=== PATIENT | female | born 1990 | race Caucasian/White ===

== ENCOUNTER → 2016-03-27 | Outpatient (REF) | payer OTHER | END | disposition home or self-care (01) | LOC: M LAB REF 20:21 | PROVIDERS: ATTEND Physician Assistant Medical | DX: J02.9 Acute pharyngitis, unspecified (principal) ==

== ENCOUNTER → 2016-04-17 | Outpatient (REF) | payer OTHER | LOC: M LAB REF 09:38 | PROVIDERS: ATTEND Physician Assistant Medical | DX: N91.2 Amenorrhea, unspecified (principal) ==

== ENCOUNTER → 2016-05-15 | Outpatient (CLI) | payer OTHER | LOC: M LAB 15:54 | PROVIDERS: ATTEND Obstetrics & Gynecology | DX: O20.0 Threatened abortion (principal); Z3A.00 Weeks of gestation of pregnancy not specified ==

== ENCOUNTER → 2016-07-23 | Outpatient (CLI) | payer OTHER | LOC: M SMT 15:38 | PROVIDERS: ATTEND Obstetrics & Gynecology | DX: O02.1 Missed abortion (principal) ==

== ENCOUNTER → 2016-08-06 | Outpatient (CLI) | payer OTHER | LOC: M SMT 13:32 | PROVIDERS: ATTEND Obstetrics & Gynecology | DX: O03.9 Complete or unspecified spontaneous abortion without complication (principal) ==

== ENCOUNTER → 2016-09-13 | Outpatient (REF) | payer OTHER | LOC: M LAB REF 20:20 | PROVIDERS: ATTEND Physician Assistant | DX: J03.90 Acute tonsillitis, unspecified (principal) ==

== ENCOUNTER → 2020-03-03 | Outpatient (REF) | payer BC | LOC: M PLALAB 11:52 | PROVIDERS: ATTEND Advanced Practice Midwife | DX: O09.812 Supervision of pregnancy resulting from assisted reproductive technology, second trimester (principal) ==

== ENCOUNTER → 2020-04-13 | Outpatient (CLI) | payer BC, OTHER ==
--- NOTE | 2020-04-13 17:08 | REP ---
INDICATION: ANATOMY. Supervision of . ROXANE September 08, 2020. COMPARISON: None. TECHNIQUE: Transabdominal obstetric sonography. FINDINGS: Scanning through the gravid uterus demonstrates a viable single intrauterine gestation in breech lie. motion is observed and heart rate is recorded at 152 beats per minute. A post row fundal placenta is seen, grade 1, without evidence of placenta previa. Closed cervical length is measured at 3.3 cm transabdominally. No extrauterine abnormality is observed. Amniotic fluid is subjectively normal. There is a echogenic focus in the ventricle consistent with chordee tendineae. spine is less than optimally seen due to position. The following additional anatomic structures are identified felt to be unremarkable: cranium and intracranial contents, face and profile nose and lips, left and right ventricular cardiac outflow tract views, diaphragm, left-sided stomach, abdominal wall cord insertion, right and left kidney, bladder, upper and lower extremities, three-vessel cord. . Biometry chart: BPD 4.2 cm, 18 weeks 4 days Head circumference 15.5 cm, 18 weeks 3 days Abdominal circumference 13.1 cm, 18 weeks 5 days Femur length 3.0 cm, 19 weeks 1 day Humeral length 2.9 cm, 19 weeks 3 days HC AC ratio normal 1.18 Cephalic index normal 0.74 Estimated weight 261 g, 0 lb 9 oz, 46 percentile for 18 weeks 6 days IMPRESSION: Viable single intrauterine gestation at 18 weeks 6 days by today's composite sonographic criteria. ROXANE by today's sonography September 08, 2020. No complication identified. <Electronically signed by Clayton Mccabe > 04/13/20 0150
== END ==
LOC: M WHC 13:33
PROVIDERS: ATTEND Advanced Practice Midwife
DX: O09.812 Supervision of pregnancy resulting from assisted reproductive technology, second trimester (principal); Z3A.18 18 weeks gestation of pregnancy

== ENCOUNTER → 2020-06-14 | Outpatient (REF) | payer OTHER | LOC: M PLALAB 08:18 | PROVIDERS: ATTEND Advanced Practice Midwife | DX: O99.212 Obesity complicating pregnancy, second trimester (principal); Z3A.00 Weeks of gestation of pregnancy not specified ==

== ENCOUNTER 2020-08-11 13:05 | Inpatient (IN) | payer BC, OTHER ==
[~2020-08-11] VITALS: Ht 170.2 cm; Wt 102.9 kg
[2020-08-11] MEDS ORDERED: PRENTAB9 PO (13:48)
[2020-08-11 14:07] VITALS: BP 118/58
[2020-08-11] MEDS ORDERED: APPROPRIATE DILUENT IV ONE (14:15)
[2020-08-11] MEDS ORDERED: LR 800 ML IV ONE (14:30)
[2020-08-11 15:25] LABS: BASO % 0.3 % (0.0-1.0); EOS # 0.1 10^3/uL (0.0-0.5); EOS % 0.7 % (0.0-3.0); HEMATOCRIT 37.2 % (36.0-47.0); HEMOGLOBIN 11.8 g/dl (12.0-15.5); LYMPH # 1.2 10^3/uL (1.5-5.0); LYMPH % 11.5 % (24.0-44.0); MEAN CORPUSCULAR HEMOGLOBIN 26.1 pg (27.0-33.0); MEAN CORPUSCULAR HGB CONC 31.7 g/dl (32.0-36.5); MEAN CORPUSCULAR VOLUME 82.3 fl (80.0-96.0); MONO # 0.7 10^3/uL (0.0-0.8); MONO % 6.5 % (2.0-8.0); NEUTROPHILS # 8.4 10^3/uL (1.5-8.5); NEUTROPHILS % 80.3 % (36.0-66.0); PLATELET COUNT, AUTOMATED 307 10^3/uL (150-450); RED BLOOD COUNT 4.52 10^6/uL (4.00-5.40); WHITE BLOOD COUNT 10.4 10^3/uL (4.0-10.0)
[2020-08-11 15:51] LABS: BLOOD UREA NITROGEN 6 MG/DL (7-18); CALCIUM LEVEL 8.2 MG/DL (8.5-10.1); CARBON DIOXIDE LEVEL 22 MEQ/L (21-32); CHLORIDE LEVEL 110 MEQ/L (98-107); CREATININE FOR GFR 0.47 MG/DL (0.55-1.30); GLOMERULAR FILTRATION RATE > 60.0 (>60); GLUCOSE, FASTING 69 MG/DL (70-100); POTASSIUM SERUM 3.7 MEQ/L (3.5-5.1); SODIUM LEVEL 140 MEQ/L (136-145)
[2020-08-11] MEDS: BETAMETHASONE SOLUSPAN 6MG/ML 5ML VIAL (J0702 PER 3MG) IM SCH (16:11)
[2020-08-11] MEDS: LR 1,000 ML IV SCH ×2 (16:54→22:45)
[2020-08-11 17:32] VITALS: BP 124/60
[2020-08-12] VITALS (11 sets, daily range): BP systolic 106–170; BP diastolic 50–78
[2020-08-12] MEDS: LR 1,000 ML IV SCH ×2 (07:30→22:15)
--- NOTE | 2020-08-12 08:16 | IPNPDOC ---
Text Note Date of Service The patient was seen on 08/12/20. NOTE Outpatient Cat I tracing, rare UC HA this am 3.[address] Ugalde. Will admit patient, repeat beta this afternoon Plan to deliver this weekend. Pt and partner verbalize understanding. VS,Fishbone, I+O VS, Fishbone, I+O Laboratory Tests 08/11/20 14:13 Vital Signs Date Time Temp Pulse Resp B/P (MAP) Pulse Ox O2 Delivery O2 Flow Rate FiO2 08/12/20 07:45 97.3 77 18 140/72 (94) I&O- Last 24 Hours up to 6 AM 08/12/20 05:59 Intake Total 2000 ml Output Total 900 ml Balance 1100 ml Suzanne Strange CNM Aug 12, 2020 08:16
[2020-08-12] MEDS ORDERED: LACTATED RINGER'S 1000 ML IV STA (08:36)
[2020-08-12] MEDS ORDERED: OXYTOCIN DRIP 30 UNITS in IV 1 EA IV PRN (08:40)
--- NOTE | 2020-08-12 08:52 | REP ---
INDICATION: LOW HA. COMPARISON: Comparison study August 11, 2020.. TECHNIQUE: Limited transabdominal obstetric sonography. FINDINGS: Scanning through the gravid uterus demonstrates a viable single intrauterine gestation in cephalic lie. motion is observed and heart rate is recorded at 134 beats per minute. A anteroseptal and 0 placenta is seen, grade 2, without evidence of placenta previa. No extrauterine abnormality is observed. Amniotic fluid is subjectively low, HA is decreased at 3.1 cm (7.7-24.8 cm). SD ratio normal 2.37. IMPRESSION: Viable single intrauterine gestation at 36 weeks 1 days by today's composite sonographic criteria. ROXANE by today's sonography September 08, 2020. Oligohydramnios. HA 3.1 cm. <Electronically signed by Clayton Mccabe > 08/12/20 0887
[2020-08-12] MEDS ORDERED: ceFAZolin SOD 2 GM in IV 1 EA IV ONE (09:00)
[2020-08-12] MEDS ORDERED: BICITRA 30ML SOLN UDC PO ONE (09:00)
--- NOTE | 2020-08-12 09:11 | HPEPDOC ---
Obstetrical History & Physical General Date of Admission Aug 12, 2020 at 08:07 History of Present Illness Chief Complaint: Other (Oligyhydramnios, previous ) Information Provided By: Patient Age: 30 : 6 Term: 1 Pre-term: 0 Abortions: 4 Livin Care Care: Good Care Dating Final EDC: Sep 08, 2020 Final EDC by: LMP EGA at Admission: 36 (+2) Antepartum Course Pre- weight (lbs.): 224 Admission Weight (lbs.): 226 Past Medical History Past Obstetrical History : Past Obstetrical History: Primgravida (2018) Type of Delivery: Ceserean section Sex of : Female Complications: Yes (Cat II, arrest dilation) MEDICAL RADIATION TECH History: Spontaneous , Other (Current IVF pregancy) Past Medical History Surgical History: section (IVF) Family History Significant Family History: Cancer (mother breast) Social History Marital Status: Family situation: Spouse/partner home Psychosocial History: No pertinent psych hx * Smoker: non-smoker Alcohol: Denies Drugs: denies Imunizations Tdap status: current Allergies Coded Allergies: No Known Drug Allergies (Verified Allergy, Unknown, 08/11/20) Medications Scheduled No.137/Iron/Folic Acd ( Vitamin Tablet) 1 Each Tablet, 1 TAB PO DAILY Physical Examination Physical Examination GENERAL: Alert and oriented times three. BREAST: . ABDOMEN: Gravid and non-tender to touch. FETUS: Is vertex (VTX) by sterile vaginal examination (SVE), fetus is vertex (VTX) by Tone. HEART RATE: Regular rate and rhythm. LUNGS: Clear to auscultation (CTA). EXTREMITIES: No edema. No clonus. Deep tendon reflexes (DTRs) + 2. Vital Signs/I&O Vital Signs Date Time Temp Pulse Resp B/P (MAP) Pulse Ox O2 Delivery O2 Flow Rate FiO2 08/12/20 07:45 97.3 77 18 140/72 (94) I&O- Last 24 Hours up to 6 AM 08/12/20 05:59 Intake Total 2000 ml Output Total 900 ml Balance 1100 ml Laboratory Data 24H LABS Laboratory Tests 2 08/11/20 14:13: Immature Granulocyte % (Auto) 0.7, Neutrophils (%) (Auto) 80.3H, Lymphocytes (%) (Auto) 11.5L, Monocytes (%) (Auto) 6.5, Eosinophils (%) (Auto) 0.7, Basophils (%) (Auto) 0.3, Neutrophils # (Auto) 8.4, Lymphocytes # (Auto) 1.2L, Monocytes # (Auto) 0.7, Eosinophils # (Auto) 0.1, Basophils # (Auto) 0.0, Nucleated Red Blood Cells % (auto) 0.0, Anion Gap 8, Glomerular Filtration Rate > 60.0, Calcium Level 8.2L 08/12/20 08:16: Serology Scanned Report Hepatitis B Testing CBC/BMP Laboratory Tests 08/11/20 14:13 Pertinent Laboratoy Data Blood Type: O+ RBC Antibody Screen: Negative HIV: Negative Hepatitis B: Negative Hepatitis C: Negative Rapid Plasma Reagin: Nonreactive Rubella: Immune Chlamydia/Gonorrhea: Negative Group B Streptococcus: Unknown ( pending) Glucose Tolerance Test: 120 Diag/Inter Therapy Panorama low risk male Anatomy Ultrasound Ultrasound Date: Apr 13, 2020 Placenta Location: Posterior Normal Anatomy: Yes Placenta Previa: No Estimated Weight (grams): 261 (46%) Other Ultrasounds [facility] 01/12/2020 6w0d 02/03/2020 8w5d, +FH + yolk sac 02/10/2020 10w0d +FH + yolk sac 08/11/2020 Cephalic, HA 4.7, EFW 2715gm 39%, S/D 2.46 08/12/2020 HA 3.1 Steroid Therapy Steroid Therapy: Yes Vaginal Examination Dilation: None (deferred) Assessment Heart Rate (FHR): 135 Variability: Moderate Accelerations: Positive Decelerations: None Tocometer Contractions: No Assessment/Plan Assessment Jeannette is a 30-year-old (G)6 para (P)1-0-4-1 at 36+2 weeks by 6-week ultrasound post IVF. Presents to Labor and Delivery (L&D) due to oligohydramnios. Denies LOF, bleeding or regular UC. Good movement. Plan Admit and orient. Rip/Mould Operator and consent for repeat per consult Dr Ugalde Diet: Regular at present Group B Streptococcus (GBS) pending. Labs and intravenous (IV) per unit protocol. Counseled on completion of steroid therapy followed by repeat this weekend Lactated Ringers (LR): Bolus 1000ml front end software engineer to OR Repeat per Suzanne Brunner CNM Aug 12, 2020 08:56
[2020-08-12 09:30] LABS: HEMATOCRIT 35.6 % (36.0-47.0); HEMOGLOBIN 11.4 g/dl (12.0-15.5); MEAN CORPUSCULAR HEMOGLOBIN 26.5 pg (27.0-33.0); MEAN CORPUSCULAR VOLUME 82.8 fl (80.0-96.0); PLATELET COUNT, AUTOMATED 323 10^3/uL (150-450); WHITE BLOOD COUNT 13.6 10^3/uL (4.0-10.0)
[2020-08-12] MEDS ORDERED: AZITHROMYCIN INJ 500 MG, VIAL MATE ADAPTER 1 EACH in NS 250 ML IV ONE (10:00)
[2020-08-12] MEDS: BETAMETHASONE SOLUSPAN 6MG/ML 5ML VIAL (J0702 PER 3MG) IM SCH (16:10)
[2020-08-13] VITALS (15 sets, daily range): BP systolic 115–145; BP diastolic 55–82
[2020-08-13] MEDS ORDERED: BICITRA 30ML SOLN UDC As Ordered ONE (06:54)
[2020-08-13] MEDS ORDERED: ceFAZolin 2 GM/D5W 50 ML IV BAG (J0690 PER 500MG) As Ordered ONE (06:54)
[2020-08-13 06:55] LABS: HEMATOCRIT 35.9 % (36.0-47.0); HEMOGLOBIN 11.5 g/dl (12.0-15.5); MEAN CORPUSCULAR HEMOGLOBIN 26.5 pg (27.0-33.0); MEAN CORPUSCULAR VOLUME 82.7 fl (80.0-96.0); PLATELET COUNT, AUTOMATED 330 10^3/uL (150-450); RED BLOOD COUNT 4.34 10^6/uL (4.00-5.40)
[2020-08-13] MEDS ORDERED: AZITHROMYCIN INJ 500MG VIAL (J0456 PER 500MG) As Ordered ONE (06:55)
[2020-08-13] MEDS: LR 1,000 ML IV SCH (09:22)
[2020-08-13] MEDS ORDERED: MORPHINE PRES-FREE INJ 10 MG/10 ML VIAL (J2274) As Ordered ONE (09:25)
[2020-08-13] MEDS ORDERED: OXYTOCIN INJ 10 UNITS/ML VIAL (J2590) As Ordered ONE (09:29)
[2020-08-13] MEDS ORDERED: ONDANSETRON 4MG/2ML VIAL As Ordered ONE (09:46)
[2020-08-13] MEDS ORDERED: NALOXONE INJ 0.4MG/1ML VIAL (J2310 PER 1MG) IV PRN ×2 (09:52)
[2020-08-13] MEDS ORDERED: NALBUPHINE HCL 10 MG/ML AMP (J2300) IV PRN (09:52)
[2020-08-13] MEDS ORDERED: diphenhydrAMINE 50MG/ML VIAL (J1200) IV PRN (09:52)
[2020-08-13] MEDS ORDERED: METOCLOPRAMIDE INJ 10MG/2ML VIAL (J2765 PER 1) IV PRN ×2 (09:52→10:50)
[2020-08-13] MEDS ORDERED: ONDANSETRON 4MG/2ML VIAL IV PRN ×3 (09:52→10:50)
[2020-08-13] MEDS ORDERED: ePHEDrine SULFATE 25 MG/5 ML(5MG/ML) SYRINGE As Ordered ONE (10:06)
[2020-08-13] MEDS ORDERED: KETOROLAC 60MG 2ML VIAL As Ordered ONE (10:07)
[2020-08-13] MEDS ORDERED: dexameTHASONE 4 MG/ML 1ML VIAL (J1100 PER 1MG) As Ordered ONE (10:07)
[2020-08-13] MEDS ORDERED: PERCOCET 5MG/325MG TAB PO PRN ×2 (10:45→10:50)
[2020-08-13] MEDS ORDERED: RHOGAM 300 MCG (1500 IU) INJ (J2790) IM SCH (10:45)
[2020-08-13] MEDS ORDERED: SIMETHICONE 80MG CHEW TAB PO PRN (10:45)
[2020-08-13] MEDS ORDERED: DOCUSATE SODIUM 100MG CAPSULE PO PRN (10:45)
[2020-08-13] MEDS ORDERED: MEASLES,MUMPS,RUBELLA VACCINE INJ (MMR-II) (90707) SC SCH (10:45)
--- NOTE | 2020-08-13 10:46 | ROOPDOC ---
[facility] Report Of Operation Report of Operation DATE OF PROCEDURE: 08/13/20 Report of operation Preoperative diagnosis: 36 4/7 weeks, prior , oligohydramnios Postoperative diagnosis: same Procedure: Repeat low transverse section. Surgeon: Kait Whiteside M.D. Asst.: Tommie Abdul MD EBL: 600 ml. Urine output: 100 mL's. Findings: 5 lbs. 12 oz. male , Apgars 8 and 9 g normal uterus, fallopian tubes, ovaries. Operative summary: Patient taken to the operating room where spinal anesthesia was induced. She was prepped draped sterile fashion in the supine position. A Mccormick catheter was placed. A Pfannenstiel skin incision was made with scalpel. Fascia was incised and extended bilaterally. The peritoneal cavity was entered. A Mobius retractor was placed. A bladder flap was created. A curvilinear incision was made in lower uterine segment until Clear fluid was noted. The incision was extended manually. The was delivered from the vertex pos ition without difficulty. Cord was double clamped and cut. The was handed waiting nurses. The placenta was expressed. Uterus was closed with O-Vicryl in a running locked fashion. A second imbricating layer of Vicryl was placed. Peritoneum was closed with 2-0 Vicryl a running fashion. Fascia was closed with 0 Vicryl in running fashion. Skin was closed 4-0 Monocryl subcuticular sutures. Sponge, instrument and needle counts were correct. Tommie Abdul MD, assisted with all aspects of the procedure. He helped close each layer of the incision and deliver the fetus. KAIT WHITESIDE MD Aug 13, 2020 10:46
[2020-08-13] MEDS ORDERED: fentaNYL 100 MCG/2 ML INJECTION (J3010) IV PRN (10:50)
[2020-08-13] MEDS ORDERED: LR 1,000 ML IV SCH ×2 (10:50→12:00)
[2020-08-13] MEDS ORDERED: OXYTOCIN DRIP 30 UNITS in IV 1 EA IV SCH (11:00)
[2020-08-13] MEDS ORDERED: OXYTOCIN 30 UNITS IN 0.9% NaCl 500ML IV BAG (J2590) As Ordered ONE (11:32)
[2020-08-13] MEDS: KETOROLAC 30 MG/ML 1ML VIAL IV SCH ×2 (15:58→21:55)
[2020-08-14] MEDS: KETOROLAC 30 MG/ML 1ML VIAL IV SCH (04:20)
[2020-08-14 06:00] VITALS: BP 115/53
[2020-08-14 07:16] LABS: HEMATOCRIT 28.9 % (36.0-47.0); MEAN CORPUSCULAR HEMOGLOBIN 27.2 pg (27.0-33.0); MEAN CORPUSCULAR HGB CONC 32.2 g/dl (32.0-36.5); MEAN CORPUSCULAR VOLUME 84.5 fl (80.0-96.0); PLATELET COUNT, AUTOMATED 305 10^3/uL (150-450); RED BLOOD COUNT 3.42 10^6/uL (4.00-5.40); WHITE BLOOD COUNT 14.6 10^3/uL (4.0-10.0)
[2020-08-14 07:17] LABS: HEMOGLOBIN 9.3 g/dl (12.0-15.5)
[2020-08-14] MEDS: PRENATAL VITAMINS CHEWABLE TABLET PO SCH (08:19)
[2020-08-14] MEDS: PERCOCET 5MG/325MG TAB PO PRN ×2 (08:27→22:56)
[2020-08-14 09:49] VITALS: BP 128/58
[2020-08-14] MEDS: IBUPROFEN 800 MG TAB PO SCH ×2 (11:31→20:52)
[2020-08-14 13:54] VITALS: BP 140/64
[2020-08-14 17:54] VITALS: BP 141/63
--- NOTE | 2020-08-14 18:31 | IPNPDOC ---
Progress Note Date of Service: Aug 14, 2020 Progress Note SUBJECT: 30 yo s/p section POD#1. pain well controlled. OBJECTIVE: VITAL SIGNS: Within normal limits, afebrile. Alert and oriented times three. Breath sounds clear to auscultation. Heart rate: Regular rate and rhythm, no murmurs, rubs or gallops. Abdomen: Fundus firm at U-2. Soft, NTTP. [Minimal] lochia. ASSESSMENT: 30 yo s/p POD#1 PLAN: 1. Ambulate 2. pain management 3. advance diet 4. routine post-op care VS, I&O, 24H, Fishbone Vital Signs/I&O Vital Signs Date Time Temp Pulse Resp B/P (MAP) Pulse Ox O2 Delivery O2 Flow Rate FiO2 08/14/20 17:54 97.5 65 16 141/63 (89) 97 Room Air 08/13/20 14:00 98.0 I&O- Last 24 Hours up to 6 AM 08/14/20 05:59 Intake Total 300 ml Output Total 1850 ml Balance -1550 ml Laboratory Data 24H LABS Laboratory Tests 2 08/14/20 06:52: Nucleated Red Blood Cells % (auto) 0.1H CBC/BMP Laboratory Tests 08/14/20 06:52 KAIT WHITESIDE MD Aug 14, 2020 18:31
[2020-08-14 22:00] VITALS: BP 139/64
[2020-08-15 02:00] VITALS: BP 109/51
[2020-08-15] MEDS: IBUPROFEN 800 MG TAB PO SCH ×2 (04:36→12:52)
[2020-08-15 06:00] VITALS: BP 144/67
[2020-08-15] MEDS ORDERED: IBUP80TA PO (06:45)
[2020-08-15] MEDS ORDERED: OXYC1TAB23 PO (06:45)
--- NOTE | 2020-08-15 06:54 | DS.PDOC ---
Discharge Summary General Date of Admission Aug 12, 2020 at 08:07 Date of Discharge Aug 15, 2020 Discharge Summary PROCEDURES PERFORMED DURING STAY: . ADMITTING DIAGNOSES: 1. 36 2/7 week, oligohydramnios, prior . DISCHARGE DIAGNOSES: 1. same. COMPLICATIONS/CHIEF COMPLAINT: EFM. HISTORY OF PRESENT ILLNESS: 30-year-old female presents to the hospital at 36-2/7 weeks gestation with a diagnosis of oligohydramnios.. HOSPITAL COURSE: Patient was made in August 12, 2020. She received a course of steroids for lung maturity. Repeat ultrasound confirmed oligohydramnios with an HA of approximately 3.0. She has had a prior section and is planning on repeat section. After completing a course of steroids decision made to proceed with delivery. On 08/13/2020 the patient had a repeat low transverse section without complication. Her postope rative course was unremarkable. She had adequate return of bladder and bowel function. She was deemed stable for discharge on postop day #2. DISCHARGE MEDICATIONS: Please see below. ALLERGIES: Please see below. PHYSICAL EXAMINATION ON DISCHARGE: VITAL SIGNS: Please see below. GENERAL: No apparent distress HEENT: NCAT CARDIOVASCULAR EXAMINATION: RRR RESPIRATORY EXAMINATION: Clear to auscultation ABDOMINAL EXAMINATION: Nontender soft fundus firm EXTREMITIES: Nontender LABORATORY DATA: Please see below. PROGNOSIS: Good ACTIVITY: As tolerated. DIET: Regular DISCHARGE PLAN: Home DISCHARGE INSTRUCTIONS: 1. Discharge home today 2. Instructions reviewed 3. Pain medication sent. DISCHARGE CONDITION: Stable. TIME SPENT ON DISCHARGE: Greater than 10 minutes. Vital Signs/I&Os Vital Signs Date Time Temp Pulse Resp B/P (MAP) Pulse Ox O2 Delivery O2 Flow Rate FiO2 08/15/20 02:00 97.8 70 16 109/51 (70) 98 Room Air 08/13/20 14:00 98.0 Laboratory Data Labs 24H Laboratory Tests 2 08/14/20 06:52: Nucleated Red Blood Cells % (auto) 0.1H CBC/BMP Laboratory Tests 08/14/20 06:52 Discharge Medications Scheduled Ibuprofen (Ibuprofen) 800 Mg Tablet, 800 MG PO Q8H No.137/Iron/Folic Acd ( Vitamin Tablet) 1 Each Tablet, 1 TAB PO DAILY, (Reported) Scheduled PRN Oxycodone HCl/Acetaminophen (Oxycodone-Acetaminophen 5-325) 1 Each Tablet, 1 TAB PO TIDP PRN for pain Allergies Coded Allergies: No Known Drug Allergies (Verified Allergy, Unknown, 08/11/20) KAIT WHITESIDE MD Aug 15, 2020 06:54
[2020-08-15] MEDS: PRENATAL VITAMINS CHEWABLE TABLET PO SCH (08:38)
== END 2020-08-15 15:50 | disposition home or self-care (01) | DRG 540 ==
LOC: M LDO 13:05 → M LDI 08-12 08:07 → M OBS 08-13 12:23
PROVIDERS: ADMIT Advanced Practice Midwife; ATTEND Specialist
PROC: 10D00Z1 Extraction of Products of Conception, Low, Open Approach (ICD-10-PCS; principal; 2020-08-13 09:00)
DX: O41.03X0 Oligohydramnios, third trimester, not applicable or unspecified (principal); O34.211 Maternal care for low transverse scar from previous cesarean delivery; Z3A.36 36 weeks gestation of pregnancy; Z37.0 Single live birth

== ENCOUNTER → 2020-08-11 | Outpatient (CLI) | payer BC, OTHER ==
[~2020-08-11] MED LIST: PRENTAB9 PO
--- NOTE | 2020-08-11 12:20 | REP ---
INDICATION: AMNIOTIC FLUID AND GROWTH, 36 WEEKS. COMPARISON: Comparison study April 13, 2020.. TECHNIQUE: Transabdominal obstetric sonography. FINDINGS: Scanning through the gravid uterus demonstrates a viable single intrauterine gestation in cephalic lie. motion is observed and heart rate is recorded at 157 beats per minute. A posterior fundal placenta is seen, grade 2, without evidence of placenta previa. Closed cervical length is measured at 3.0 cm transabdominally. No extrauterine abnormality is observed. Amniotic fluid is subjectively oligohydramnios. HA low 4.7 cm (7.7-24.9 cm). . Biometry chart: BPD 9.3 cm, 37 weeks 6 days Head circumference 32.2 cm, 36 weeks 2 days Abdominal circumference 30.7 cm, 34 weeks 5 days Femur length 7.1 cm, 36 weeks 1 day Humeral length 6.2 cm, 35 weeks 4 days HC AC ratio normal 1.05 Cephalic index normal 0.84 Estimated weight 2715 g, 5 lb 15 oz, 39th percentile for 36 weeks 0 days SD ratio in the umbilical cord artery by Doppler normal 2.46 HA low 4.7 cm IMPRESSION: Viable single intrauterine gestation at 36 weeks 1 days by today's composite sonographic criteria. ROXANE by today's sonography September 07, 2020.. Oligohydramnios. Expected gestational age estimate based on known ROXANE of 08 September 2020 is 36 weeks 0 days. This is consistent with appropriate interval growth. <Electronically signed by Clayotn Mccabe > 08/11/20 [id number]
== END ==
LOC: M RAD 11:20
PROVIDERS: ATTEND Advanced Practice Midwife
DX: Z36.89 Encounter for other specified antenatal screening (principal); Z3A.36 36 weeks gestation of pregnancy

== ENCOUNTER 2021-06-06 16:17 | Emergency (ER) | payer BC, OTHER ==
[~2021-06-06] VITALS: Ht 170.2 cm; Wt 97.5 kg
[~2021-06-06 16:17] MED LIST changes: +IBUP-1114 PO; +IBUP80TA PO; +OXYC1TAB23 PO
[2021-06-06 16:18] VITALS: BP 143/65
[2021-06-06] MEDS ORDERED: ENDO100S PV (16:41)
[2021-06-06 17:54] LABS: BASO % 0.2 % (0.0-1.0); EOS # 0.2 10^3/uL (0.0-0.5); EOS % 1.5 % (0.0-3.0); HEMATOCRIT 40.9 % (36.0-47.0); LYMPH # 2.5 10^3/uL (1.5-5.0); LYMPH % 17.8 % (24.0-44.0); MEAN CORPUSCULAR HEMOGLOBIN 28.4 pg (27.0-33.0); MEAN CORPUSCULAR HGB CONC 34.2 g/dl (32.0-36.5); MONO # 0.8 10^3/uL (0.0-0.8); MONO % 6.1 % (2.0-8.0); NEUTROPHILS # 10.2 10^3/uL (1.5-8.5); PLATELET COUNT, AUTOMATED 354 10^3/uL (150-450); RED BLOOD COUNT 4.93 10^6/uL (4.00-5.40); WHITE BLOOD COUNT 13.8 10^3/uL (4.0-10.0)
[2021-06-06 18:32] LABS: ALBUMIN 3.4 GM/DL (3.2-5.2); ALT/SGPT 46 U/L (12-78); BILIRUBIN,DIRECT < 0.1 MG/DL (0.0-0.2); BILIRUBIN,TOTAL 0.3 MG/DL (0.2-1.0); BLOOD UREA NITROGEN 9 MG/DL (7-18); CALCIUM LEVEL 9.4 MG/DL (8.5-10.1); CARBON DIOXIDE LEVEL 26 MEQ/L (21-32); CHLORIDE LEVEL 106 MEQ/L (98-107); CREATININE FOR GFR 0.54 MG/DL (0.55-1.30); GLOMERULAR FILTRATION RATE > 60.0 (>60); GLUCOSE, FASTING 84 MG/DL (70-100); HCG, SERUM QUANTITATIVE 109189 MIU/ML; LIPASE 87 U/L (73-393); POTASSIUM SERUM 4.3 MEQ/L (3.5-5.1); SODIUM LEVEL 137 MEQ/L (136-145); TOTAL PROTEIN 6.8 GM/DL (6.4-8.2)
== END 2021-06-06 21:20 | disposition home or self-care (01) ==
LOC: M ED 16:17
DX: O26.891 Other specified pregnancy related conditions, first trimester (principal); R10.2 Pelvic and perineal pain; Z3A.10 10 weeks gestation of pregnancy

== ENCOUNTER → 2021-06-12 | Outpatient (CLI) | payer BC, OTHER ==
[~2021-06-12] MED LIST changes: +ENDO100S PV
== END ==
LOC: M PLALAB 15:59
PROVIDERS: ATTEND Advanced Practice Midwife
DX: O34.211 Maternal care for low transverse scar from previous cesarean delivery (principal); Z53.9 Procedure and treatment not carried out, unspecified reason

== ENCOUNTER → 2021-08-15 | Outpatient (CLI) | payer BC, OTHER ==
[2021-08-15 17:52] LABS: HEMATOCRIT 39.1 % (36.0-47.0); HEMOGLOBIN 12.9 g/dl (12.0-15.5); MEAN CORPUSCULAR HEMOGLOBIN 28.5 pg (27.0-33.0); MEAN CORPUSCULAR VOLUME 86.5 fl (80.0-96.0); PLATELET COUNT, AUTOMATED 347 10^3/uL (150-450); RED BLOOD COUNT 4.52 10^6/uL (4.00-5.40); WHITE BLOOD COUNT 13.7 10^3/uL (4.0-10.0)
[2021-08-15 18:48] LABS: HEPATITIS C VIRUS ABY INDEX 0.1 INDEX (<0.8); HIV 1&2 SCREEN CENTAUR NEGATIVE (NEGATIVE)
[2021-08-15 21:07] LABS: GC DNA AMPLIFICATION NEGATIVE (NEGATIVE)
== END ==
LOC: M PLALAB 13:25
PROVIDERS: ATTEND Advanced Practice Midwife
DX: O34.211 Maternal care for low transverse scar from previous cesarean delivery (principal); Z3A.20 20 weeks gestation of pregnancy

== ENCOUNTER → 2021-08-15 | Outpatient (CLI) | payer BC, OTHER | LOC: M WHC 13:27 | PROVIDERS: ATTEND Obstetrics & Gynecology | DX: Z36.2 Encounter for other antenatal screening follow-up (principal); Z3A.20 20 weeks gestation of pregnancy ==

== ENCOUNTER → 2021-10-09 | Outpatient (CLI) | payer BC, OTHER ==
[2021-10-09 14:09] LABS: HEMATOCRIT 35.6 % (36.0-47.0); HEMOGLOBIN 11.4 g/dl (12.0-15.5); MEAN CORPUSCULAR HEMOGLOBIN 27.7 pg (27.0-33.0); MEAN CORPUSCULAR VOLUME 86.4 fl (80.0-96.0); PLATELET COUNT, AUTOMATED 294 10^3/uL (150-450); RED BLOOD COUNT 4.12 10^6/uL (4.00-5.40)
== END ==
LOC: M PLALAB 08:44
PROVIDERS: ATTEND Obstetrics & Gynecology
DX: Z34.82 Encounter for supervision of other normal pregnancy, second trimester (principal)

== ENCOUNTER → 2021-11-15 | Outpatient (CLI) | payer BC, OTHER | LOC: M WHC 08:10 | PROVIDERS: ATTEND Obstetrics & Gynecology | DX: Z36.2 Encounter for other antenatal screening follow-up (principal); Z3A.33 33 weeks gestation of pregnancy ==

== ENCOUNTER → 2021-12-01 | Outpatient (REF) | payer OTHER | LOC: M SFHCWAGY 12:37 | PROVIDERS: ATTEND Obstetrics & Gynecology | DX: O34.211 Maternal care for low transverse scar from previous cesarean delivery (principal) ==

== ENCOUNTER → 2021-12-24 | Outpatient (CLI) | payer BC, OTHER | LOC: M LABSMTC 10:09 | PROVIDERS: ATTEND Anesthesiology | DX: Z01.812 Encounter for preprocedural laboratory examination (principal) ==

== ENCOUNTER 2021-12-27 05:34 | Inpatient (IN) | payer BC, OTHER ==
[2021-12-27] VITALS (8 sets, daily range): BP systolic 91–151; BP diastolic 43–70
[~2021-12-27] VITALS: Ht 170.2 cm; Wt 102.8 kg
[2021-12-27] MEDS ORDERED: ceFAZolin SOD 2 GM in IV 1 EA IV ONE (06:00)
[2021-12-27] MEDS ORDERED: LR 1,000 ML IV ONE (06:00)
[2021-12-27] MEDS ORDERED: BICITRA 30ML SOLN UDC PO ONE (06:00)
[2021-12-27 06:30] LABS: HEMATOCRIT 37.6 % (36.0-47.0); HEMOGLOBIN 11.8 g/dl (12.0-15.5); MEAN CORPUSCULAR HGB CONC 31.4 g/dl (32.0-36.5); MEAN CORPUSCULAR VOLUME 79.7 fl (80.0-96.0); PLATELET COUNT, AUTOMATED 341 10^3/uL (150-450); RED BLOOD COUNT 4.72 10^6/uL (4.00-5.40); WHITE BLOOD COUNT 13.6 10^3/uL (4.0-10.0)
[2021-12-27] MEDS: LR 1,000 ML IV SCH ×3 (07:04→23:00)
[2021-12-27] MEDS ORDERED: MORPHINE PRES-FREE INJ 10 MG/10 ML VIAL As Ordered ONE (07:07)
[2021-12-27] MEDS ORDERED: OXYTOCIN INJ 10 UNITS/ML VIAL (J2590) As Ordered ONE ×2 (07:10→09:07)
[2021-12-27] MEDS ORDERED: HOME MED LIST COMPLETE! XX SCH (07:15)
[2021-12-27] MEDS ORDERED: PHENYLephrine 500MCG 5ML (100MCG/ML) SYRINGE As Ordered ONE (07:56)
[2021-12-27] MEDS ORDERED: ONDANSETRON 4MG 2ML VIAL As Ordered ONE (08:11)
[2021-12-27] MEDS ORDERED: KETOROLAC 60MG 2ML VIAL As Ordered ONE (08:11)
[2021-12-27] MEDS ORDERED: ACETAMINOPHEN 1000MG 100ML IV BAG As Ordered ONE (08:12)
[2021-12-27] MEDS ORDERED: PERCOCET 5MG/325MG TAB PO PRN (09:20)
[2021-12-27] MEDS ORDERED: METHYLERGONOVINE MALEATE 0.2 MG/ML VIAL (J2210) IM PRN (09:20)
[2021-12-27] MEDS ORDERED: SIMETHICONE 80MG CHEW TAB PO PRN (09:20)
[2021-12-27] MEDS ORDERED: ACETAMINOPHEN 500 MG TAB PO PRN (09:20)
[2021-12-27] MEDS ORDERED: RHOGAM 300 MCG (1500 IU) INJ (J2790) IM SCH (09:20)
[2021-12-27] MEDS ORDERED: LR 1,000 ML IV SCH (09:20)
[2021-12-27] MEDS ORDERED: ANUSOL HC CREAM 30GM TOP PRN (09:20)
[2021-12-27] MEDS ORDERED: OXYTOCIN DRIP 30 UNITS in IV 1 EA IV SCH (09:20)
[2021-12-27] MEDS ORDERED: MORPHINE 2 MG/ML 1ML VIAL IV PRN (09:20)
[2021-12-27] MEDS ORDERED: ONDANSETRON 4MG 2ML VIAL IV PRN ×2 (09:20→09:35)
[2021-12-27] MEDS ORDERED: oxyCODONE 5MG TAB PO PRN (09:35)
[2021-12-27] MEDS ORDERED: HYDROMORPHONE HCL 0.5 MG/ 0.5 ML SYRINGE (J1170 PER 1) IV PRN (09:35)
[2021-12-27] MEDS ORDERED: METOCLOPRAMIDE INJ 10MG/2ML VIAL (J2765 PER 1) IV PRN (09:35)
[2021-12-27] MEDS ORDERED: MEPERIDINE INJ 25 MG/ML VIAL (J2175) IV PRN (09:35)
[2021-12-27] MEDS ORDERED: NALOXONE INJ 0.4MG/1ML VIAL (J2310 PER 1MG) IV PRN ×2 (09:35)
[2021-12-27] MEDS ORDERED: **NOTE PATIENT COMMENT** MISC XX SCH (09:35)
[2021-12-27] MEDS ORDERED: diphenhydrAMINE 50MG/ML VIAL IV PRN (09:35)
[2021-12-27] MEDS: SLF 3 ML SYR IV SCH ×2 (09:35→17:35)
[2021-12-27] MEDS ORDERED: fentaNYL 100 MCG/2 ML INJECTION IV PRN (09:35)
[2021-12-27] MEDS ORDERED: OXYTOCIN 30 UNITS IN 0.9% NaCl 500ML IV BAG (J2590) As Ordered ONE (09:37)
[2021-12-27] MEDS: KETOROLAC 30 MG/ML 1ML VIAL IV SCH ×2 (15:12→21:46)
[2021-12-27] MEDS: DOCUSATE SODIUM 100MG CAPSULE PO SCH (21:45)
[2021-12-28] VITALS (7 sets, daily range): BP systolic 106–132; BP diastolic 50–73
[2021-12-28] MEDS: SLF 3 ML SYR IV SCH (01:35)
[2021-12-28] MEDS: KETOROLAC 30 MG/ML 1ML VIAL IV SCH (03:34)
[2021-12-28 06:11] LABS: MEAN CORPUSCULAR HEMOGLOBIN 25.3 pg (27.0-33.0); MEAN CORPUSCULAR HGB CONC 31.4 g/dl (32.0-36.5); MEAN CORPUSCULAR VOLUME 80.5 fl (80.0-96.0); PLATELET COUNT, AUTOMATED 257 10^3/uL (150-450); RED BLOOD COUNT 3.48 10^6/uL (4.00-5.40); WHITE BLOOD COUNT 11.9 10^3/uL (4.0-10.0)
[2021-12-28 06:34] LABS: HEMOGLOBIN 8.8 g/dl (12.0-15.5)
[2021-12-28] MEDS: LR 1,000 ML IV SCH ×3 (07:00→23:00)
[2021-12-28] MEDS: PRENATAL VITAMINS CHEWABLE TABLET PO SCH (10:30)
[2021-12-28] MEDS: IBUPROFEN 800 MG TAB PO SCH ×2 (10:30→18:44)
[2021-12-28] MEDS: DOCUSATE SODIUM 100MG CAPSULE PO SCH ×2 (10:30→20:54)
[2021-12-28] MEDS ORDERED: IBUP80TA PO (11:36)
[2021-12-28] MEDS ORDERED: COLA100C5 PO (11:36)
[2021-12-28] MEDS ORDERED: PERCOCET PO (11:36)
[2021-12-28] MEDS: PERCOCET 5MG/325MG TAB PO PRN (19:44)
[2021-12-29 01:59] VITALS: BP 125/57
[2021-12-29] MEDS: IBUPROFEN 800 MG TAB PO SCH (03:23)
[2021-12-29] MEDS: PERCOCET 5MG/325MG TAB PO PRN (05:28)
[2021-12-29 06:19] VITALS: BP 121/58
[2021-12-29] MEDS: PRENATAL VITAMINS CHEWABLE TABLET PO SCH (08:18)
[2021-12-29] MEDS: DOCUSATE SODIUM 100MG CAPSULE PO SCH (08:18)
[2021-12-29] MEDS ORDERED: MEASLES,MUMPS,RUBELLA VACCINE INJ (MMR-II) (90707) SC.IMMUN ONE (09:00)
== END 2021-12-29 10:50 | disposition home or self-care (01) | DRG 540 ==
LOC: M LDI 05:34 → M OBS 11:09
PROVIDERS: ADMIT Obstetrics & Gynecology; ATTEND Obstetrics & Gynecology
PROC: 0UB70ZZ Excision of Bilateral Fallopian Tubes, Open Approach (ICD-10-PCS; 2021-12-27)
PROC: 10D00Z1 Extraction of Products of Conception, Low, Open Approach (ICD-10-PCS; principal; 2021-12-27 07:30)
DX: O34.211 Maternal care for low transverse scar from previous cesarean delivery (principal); Z3A.39 39 weeks gestation of pregnancy; Z37.0 Single live birth; Z30.2 Encounter for sterilization; O99.214 Obesity complicating childbirth; E66.9 Obesity, unspecified

== ENCOUNTER → 2024-07-01 | Outpatient (REF) | payer BC ==
[~2024-07-01] MED LIST changes: +COLA100C5 PO; +PERCOCET PO
[2024-07-01 13:38] LABS: BASO # 0.1 10^3/uL (0.0-0.2); BASO % 0.8 % (0.0-1.0); EOS # 0.4 10^3/uL (0.0-0.5); EOS % 4.2 % (0.0-3.0); HEMATOCRIT 42.6 % (36.0-47.0); HEMOGLOBIN 13.8 g/dl (12.0-15.5); LYMPH # 2.2 10^3/uL (1.5-5.0); LYMPH % 26.3 % (24.0-44.0); MEAN CORPUSCULAR HGB CONC 32.4 g/dl (32.0-36.5); MEAN CORPUSCULAR VOLUME 86.6 fl (80.0-96.0); MONO # 0.6 10^3/uL (0.0-0.8); MONO % 6.6 % (2.0-8.0); NEUTROPHILS # 5.2 10^3/uL (1.5-8.5); NEUTROPHILS % 61.7 % (36.0-66.0); PLATELET COUNT, AUTOMATED 320 10^3/uL (150-450); RED BLOOD COUNT 4.92 10^6/uL (4.00-5.40); WHITE BLOOD COUNT 8.4 10^3/uL (4.0-10.0)
[2024-07-01 13:52] LABS: THYROID STIMULATING HORMONE 1.398 uIU/ML (0.55-4.78)
[2024-07-01 13:53] LABS: ALBUMIN 3.8 G/DL (3.2-5.2); ALKALINE PHOSPHATASE 54 U/L (35-104); ALT/SGPT 27 U/L (7.0-40); AST/SGOT 20 U/L (<34); BILIRUBIN,TOTAL 0.4 MG/DL (0.3-1.2); BLOOD UREA NITROGEN 13 MG/DL (9-23); CALCIUM LEVEL 8.8 MG/DL (8.5-10.1); CARBON DIOXIDE LEVEL 30 MMOL/L (20-31); CHLORIDE LEVEL 105 MMOL/L (98-107); CHOLESTEROL LEVEL 190 MG/DL (<200); CHOLESTEROL RISK RATIO 4.05 (<5); CREATININE FOR GFR 0.69 MG/DL (0.55-1.30); GLOMERULAR FILTRATION RATE > 90.0 (>60); GLUCOSE, FASTING 95 MG/DL (60-100); HDL CHOLESTEROL 46.8 MG/DL (>40); LDL CHOLESTEROL 128.4 MG/DL (<100); NON-HDL-C 143.2 MG/DL; POTASSIUM SERUM 4.3 MMOL/L (3.5-5.1); SODIUM LEVEL 142 MMOL/L (136-145); TOTAL PROTEIN 6.8 G/DL (5.7-8.2); TRIGLYCERIDES LEVEL 74 MG/DL (<150)
[2024-07-01 13:55] LABS: FREE T4 0.99 NG/DL (0.89-1.76)
== END ==
LOC: M SFHCADAM 07:47
PROVIDERS: ATTEND Nurse Practitioner Family
DX: Z13.220 Encounter for screening for lipoid disorders (principal); R53.83 Other fatigue